=== PATIENT | male | born 1940 | race Caucasian/White ===

== ENCOUNTER → 2019-04-06 | Outpatient (CLI) | payer MEDICARE ==
[~2019-04-06] MED LIST: ASCO10004 PO; ASPI81TA45 PO; BIOF1000 PO; CHOL10003 PO; DILT90TA PO; FOLI-17 PO; IRON PO; LACT1CAP37 PO; LOSA25TA25 PO; MONT10TA11 PO; MULT-516 PO; OMEG1CAP39 PO; SULI200T2 PO; TYLENOL ARTHRITIS PO; [UNRECOGNIZED DRUG - CODE] PO
[2019-04-06 11:50] LABS: ALBUMIN 3.3 g/dL (3.4-5.0); ANION GAP 7 mmol/L (5-15); CALCIUM 9.3 mg/dL (8.5-10.1); CHLORIDE 109 mmol/L (98-107); CREATININE 0.98 mg/dL (0.7-1.3)
[2019-04-06 11:56] LABS: ALANINE AMINOTRANSFERASE 25 U/L (12-78); ALKALINE PHOSPHATASE 91 U/L (45-117); BILIRUBIN,TOTAL 0.4 mg/dL (0.2-1.0); TOTAL PROTEIN 7.1 g/dL (6.4-8.2)
== END | disposition home or self-care (01) ==
LOC: STAR 10:12
PROVIDERS: ATTEND Otolaryngology
DX: Z01.818 Encounter for other preprocedural examination (principal); J32.2 Chronic ethmoidal sinusitis; J32.4 Chronic pansinusitis; J32.0 Chronic maxillary sinusitis; J34.2 Deviated nasal septum
CPT/HCPCS: 36415; 80053; 93005

== ENCOUNTER 2019-04-11 05:52 | Day surgery (SDC) | payer MEDICARE ==
[~2019-04-11] VITALS: Ht 177.8 cm; Wt 81.8 kg
[2019-04-11] MEDS ORDERED: LACTATED RINGERS 1,000 ML IV SCH (06:22)
[2019-04-11 06:24] VITALS: BP 124/80
[2019-04-11] MEDS ORDERED: OXYMETAZOLINE NASAL SPRAY 0.05%, 15ML ONE (06:53)
[2019-04-11] MEDS ORDERED: FLUORESCEIN SODIUM 500 MG/5 ML ONE (06:53)
[2019-04-11] MEDS ORDERED: EPINEPHRINE TOPICAL SOLN 1 MG/ML, 30ML ONE (06:53)
[2019-04-11] MEDS ORDERED: BACITRACIN OINT 500U/GM, 15 GM ONE (06:53)
[2019-04-11] MEDS ORDERED: LIDOCAINE 1%-EPI 1:100K, 20ML ONE (06:54)
[2019-04-11] MEDS ORDERED: BACITRACIN 50,000 UNIT ONE (06:54)
[2019-04-11] MEDS ORDERED: PROPOFOL 50 ML ONE ×3 (07:14→09:26)
[2019-04-11] MEDS ORDERED: FENTANYL PF 250 MCG/5ML ONE (07:14)
[2019-04-11] MEDS ORDERED: MIDAZOLAM 1 MG/ML, 2ML ONE (07:14)
[2019-04-11] MEDS ORDERED: ONDANSETRON 2MG/ML, 2ML ONE (08:37)
[2019-04-11] MEDS ORDERED: ROCURONIUM 10MG/ML,5ML ONE (08:37)
[2019-04-11] MEDS ORDERED: SUCCINYLCHOLINE 20 MG/ML, 10ML ONE (08:37)
[2019-04-11] MEDS ORDERED: DEXAMETHASONE 4 MG/ML, 1ML ONE (08:38)
[2019-04-11] MEDS ORDERED: PROPOFOL 10 MG/ML, 20ML ONE (08:38)
[2019-04-11] MEDS ORDERED: CEFAZOLIN 1,000 MG ONE (08:38)
[2019-04-11] MEDS ORDERED: ONDANSETRON 2MG/ML, 2ML IV PRN (09:30)
[2019-04-11] MEDS ORDERED: FENTANYL PF 100 MCG/2ML IV PRN (09:30)
[2019-04-11] MEDS ORDERED: PROMETHAZINE 25 MG/ML, 1ML IV PRN (09:30)
[2019-04-11] MEDS ORDERED: MORPHINE SULFATE 4 MG/ML, 1ML IVPush PRN (09:30)
[2019-04-11] MEDS ORDERED: EPHEDRINE 50 MG/ML, 1ML IM PRN (09:30)
[2019-04-11] MEDS ORDERED: EPHEDRINE 50 MG/ML, 1ML IVPush PRN (09:30)
[2019-04-11] MEDS ORDERED: DIPHENHYDRAMINE 50 MG/ML, 1ML IVPush PRN (09:30)
[2019-04-11] MEDS ORDERED: ONDANSETRON ODT 8 MG PO PRN (09:30)
[2019-04-11] MEDS ORDERED: ACETAMINOPHEN 325 MG TABLET PO PRN (09:30)
[2019-04-11] MEDS ORDERED: DIAZEPAM 5 MG/ML, 2ML IVPush PRN (09:30)
[2019-04-11] MEDS ORDERED: MEPERIDINE/PF 25MG/ML,1ML ONE (10:46)
[2019-04-11] MEDS ORDERED: OXYcodone 5 MG/5 ML ORAL.SOL UDC ONE ×2 (10:47→11:05)
[2019-04-11] MEDS ORDERED: MEPERIDINE/PF 25MG/0.5ML IVPush PRN (10:50)
[2019-04-11] MEDS: OXYcodone 5 MG/5 ML ORAL.SOL UDC PO PRN ×2 (11:00→11:05)
[2019-04-11] MEDS ORDERED: MEPERIDINE/PF 25MG/ML,1ML IVPush PRN (11:00)
== END 2019-04-11 15:35 | disposition home or self-care (01) ==
LOC: OUT 05:52
PROVIDERS: ATTEND Otolaryngology
DX: J32.0 Chronic maxillary sinusitis (principal); J34.2 Deviated nasal septum; J32.2 Chronic ethmoidal sinusitis; J32.4 Chronic pansinusitis; I27.20 Pulmonary hypertension, unspecified; Z79.899 Other long term (current) drug therapy; Z88.1 Allergy status to other antibiotic agents; Z96.652 Presence of left artificial knee joint; Z96.612 Presence of left artificial shoulder joint; Z98.890 Other specified postprocedural states
CPT/HCPCS: 30520; 31259; 31267; 31276; 87070; 87075; 87205; 88305; 88311; J0330; J0690; J1100; J2175; J2250; J2405; J2704; J3010; J3490; J7120; 87077